=== PATIENT | female | born 1965 | race Caucasian/White ===

== ENCOUNTER 2019-01-08 05:30 | Day surgery (SDC) | payer OTHER ==
[~2019-01-08] VITALS: Ht 160 cm; Wt 77.1 kg
[2019-01-08] MEDS ORDERED: fentaNYL 0.05 MG/ML VIAL ONE (07:58)
[2019-01-08] MEDS ORDERED: MIDAZOLAM 2 MG/2 ML VIAL ONE (07:58)
[2019-01-08] MEDS ORDERED: LIDOCAINE 2% 100 MG/5 ML UJET TP ONE (07:58)
[2019-01-08] MEDS ORDERED: fentaNYL 0.05 MG/ML VIAL IVP ONE (10:40)
== END 2019-01-08 09:00 | disposition home or self-care (01) ==
LOC: MDS 05:30 → MMU 06:02 → MDS 09:00
PROVIDERS: ATTEND Internal Medicine Gastroenterology
DX: R14.0 Abdominal distension (gaseous) (principal); E66.3 Overweight; Z68.30 Body mass index [BMI] 30.0-30.9, adult; Z72.89 Other problems related to lifestyle; Z79.899 Other long term (current) drug therapy; Z98.51 Tubal ligation status
CPT/HCPCS: 45378; 81025; J3010; J2250